=== PATIENT | male | born 1985 ===

== ENCOUNTER 2022-07-18 14:53 | Observation (INO) | payer OTHER ==
[2022-07-18] MEDS ORDERED: Morphine 2 MG/ML VIAL SLOW IVP PRN (19:04)
[2022-07-18] MEDS ORDERED: Ondansetron ODT 4 MG TAB PO PRN (19:04)
[2022-07-18] MEDS ORDERED: Morphine 4 MG/ML VIAL SLOW IVP PRN (19:04)
[2022-07-18] MEDS ORDERED: Ondansetron PF 4 MG/2 ML Vial IVP PRN (19:04)
[2022-07-18] MEDS ORDERED: TETANUS, DIPHTHERIA TOX,ADULT (TDVAX) 0.5 ML VIAL IM ONE (19:04)
[2022-07-18] MEDS ORDERED: hydrALAZINE 20 MG/ML VIAL SLOW IVP PRN (19:04)
[2022-07-18] MEDS ORDERED: Ketorolac Tromethamine 30 MG/ML VIAL IVP SCH (19:15)
[2022-07-18] MEDS: Famotidine/PF 20 mg/2ml Vial SLOW IVP SCH (21:49)
[2022-07-18] MEDS: Lactated Ringer's 1,000 ML IV SCH (21:50)
[2022-07-18 22:32] VITALS: BMI 36.1
[2022-07-18] MEDS: Ketorolac Tromethamine 30 MG/ML VIAL IVP SCH (23:50)
[2022-07-19] MEDS: Ketorolac Tromethamine 30 MG/ML VIAL IVP SCH ×2 (06:06→13:22)
[2022-07-19] MEDS: Lactated Ringer's 1,000 ML IV SCH ×2 (06:13→13:22)
[2022-07-19 06:31] LABS: ALT (SGPT) 417 U/L (8-55); AST (SGOT) 181 U/L (5-34); Albumin 3.8 g/dL (3.5-5.0); Alkaline Phosphatase 116 U/L (40-110); Anion Gap 12 mmol/L (10-20); BUN (Urea Nitrogen) 8 mg/dL (8.9-20.6); Bilirubin, Total 0.5 mg/dL (0.2-1.2); Calc. Creatinine Clearance 169 mL/min (70-130); Calcium 8.6 mg/dL (7.8-10.44); Carbon Dioxide 20 mmol/L (22-29); Chloride 107 mmol/L (98-107); Estimated GFR 96; Globulin 2.4 g/dL (2.4-3.5); Glucose 195 mg/dL (70-105); Potassium 3.8 mmol/L (3.5-5.1); Protein, Total 6.2 g/dL (6.0-8.3); Sodium 135 mmol/L (136-145)
[2022-07-19] MEDS: Famotidine/PF 20 mg/2ml Vial SLOW IVP SCH (08:19)
[2022-07-19] MEDS ORDERED: Bupivacaine HCl 0.5%/Epinephrine 1:200,000/PF 30 ml Vial ONE (12:17)
[2022-07-19] MEDS ORDERED: fentaNYL PF 100 MCG/2 ML SYRINGE ONE (12:21)
[2022-07-19] MEDS ORDERED: Glycopyrrolate 0.2 MG/ML 5 ML SYRINGE ONE (12:34)
[2022-07-19] MEDS ORDERED: Lidocaine 1% PF 5 ML VIAL ONE (12:34)
[2022-07-19] MEDS ORDERED: Rocuronium Bromide 10 MG/ML (10ML VIAL) ONE (12:34)
[2022-07-19] MEDS ORDERED: PROPOFOL 200 MG/20 ML VIAL ONE (12:34)
[2022-07-19] MEDS ORDERED: NEOSTIGMINE 3 MG/3 ML SYR 3 MG/3 ML SYRINGE ONE (12:34)
[2022-07-19] MEDS ORDERED: Dexamethasone 20 MG/5 ML VIAL ONE (12:34)
[2022-07-19] MEDS ORDERED: Ondansetron PF 4 MG/2 ML Vial ONE (12:34)
[2022-07-19] MEDS ORDERED: Promethazine HCl 25 MG/ML VIAL IM PRN (13:34)
[2022-07-19] MEDS ORDERED: Ondansetron HCl/PF 4 MG/2 ML Vial IVP PRN (13:34)
[2022-07-19] MEDS ORDERED: Ketorolac Tromethamine 30 MG/ML VIAL ONE (13:35)
[2022-07-19] MEDS ORDERED: Fentanyl 100 MCG/2 ML VIAL ONE (13:41)
[2022-07-19] MEDS ORDERED: Ibuprofen 600 MG TAB PO PRN (13:55)
[2022-07-19] MEDS ORDERED: Acetaminophen 500 MG TAB PO PRN (13:55)
[2022-07-19] MEDS ORDERED: Acetaminophen 500 MG TAB PO SCH (14:00)
[2022-07-19 16:23] VITALS: BP 136/92; TEMP 97.5
== END 2022-07-19 16:16 ==
LOC: SJJU 14:53
PROVIDERS: ADMIT Specialist; ATTEND Specialist
PROC: 0FT44ZZ Resection of Gallbladder, Percutaneous Endoscopic Approach (ICD-10-PCS; principal; 2022-07-19)
DX: K80.12 Calculus of gallbladder with acute and chronic cholecystitis without obstruction (principal); I10 Essential (primary) hypertension; E78.5 Hyperlipidemia, unspecified; Z87.891 Personal history of nicotine dependence
CPT/HCPCS: 36415; 80053; 88304; 96372; 96374; 96375; C1889; G0378; J1100; J1650; J1885; J1956; J2405; J2704; J3010; J7120; S0028